=== PATIENT | female | born 1990 | race Caucasian/White ===

== ENCOUNTER 2018-11-26 11:05 | Inpatient (IN) | payer MEDICAID ==
[2018-11-26] MEDS ORDERED: CEFAZOLIN 2 GM/50 ML (PMX) 50 ML IVPB (12:30)
[2018-11-26] MEDS ORDERED: CARBOPROST 250 MCG INJ IM (12:30)
[2018-11-26 13:26] LABS: ADD MAN DIFF? NO
[2018-11-26 13:29] LABS: WHITE BLOOD COUNT 10.3 10^3/ul (4.8-10.8)
[2018-11-26 13:29] LABS: BASOPHILS % 0.4 % (0.0-2.0); EOSINOPHILS % 0.4 % (0.0-7.0); HEMATOCRIT 31.9 % (37.0-47.0); HEMOGLOBIN 10.6 g/dl (12.0-16.0); LYMPHOCYTES # 2.1 10^3/ul (0.8-2.9); LYMPHOCYTES % 19.9 % (15.0-51.0); MEAN CORPUSCULAR HGB CONC 33.2 g/dl (32.0-37.0); MEAN CORPUSCULAR VOLUME 90.4 fl (82.0-101.0); MEAN PLATELET VOLUME 9.3 fl (7.4-10.4); MONOCYTE # 0.7 10^3/ul (0.3-0.9); MONOCYTES % 6.9 % (0.0-11.0); NEUTROPHIL # 7.4 10^3/ul (1.6-7.5); PLATELET COUNT 195 10^3/UL (140-415); RED BLOOD COUNT 3.53 10^6/ul (4.20-5.40); RED CELL DISTRIBUTION WIDTH 14.3 % (11.5-14.5)
[2018-11-26 13:50] LABS: INR 1.02; PROTIME 13.5 Sec (11.9-14.9); PT RATIO 1.1
[2018-11-26 13:51] LABS: PARTIAL THROMBOPLASTIN TIME 28.1 Sec (23.0-35.0)
[2018-11-26] MEDS: BUTORPHANOL 2 MG INJ IV ×2 (14:20→17:16)
[2018-11-26] MEDS: LACTATED RINGER'S 1,000 ML IV ×2 (16:47→20:12)
[2018-11-26] MEDS: TERBUTALINE 1 MG/ML INJ SC (17:37)
[2018-11-26 18:13] LABS: RAPID PLASMA REAGIN NONREACTIVE (NR)
[2018-11-26] MEDS ORDERED: OXYTOCIN 10 UNIT INJ ×2 (18:46→19:18)
[2018-11-26] MEDS ORDERED: morphine SULFATE/PF (10 MG/10 ML) INJ (18:46)
[2018-11-26] MEDS ORDERED: ONDANSETRON 4 MG INJ (18:46)
[2018-11-26] MEDS ORDERED: OXYTOCIN 30 UNITS/LR 500 ML BAG IV (18:46)
[2018-11-26] MEDS ORDERED: PHENYLephrine 10 MG INJ (19:03)
[2018-11-26] MEDS ORDERED: NALOXONE (0.4 MG/ML) INJ IV (20:00)
[2018-11-26] MEDS ORDERED: morphine 2 MG INJ IV (20:00)
[2018-11-26] MEDS ORDERED: DIPHENHYDRAMINE 50 MG INJ IV (20:00)
[2018-11-26] MEDS ORDERED: ONDANSETRON 4 MG INJ IV (20:00)
[2018-11-26] MEDS: OXYTOCIN 30 UNITS/LR 500 ML IV ×2 (20:57→23:04)
[2018-11-26] MEDS: KETOROLAC 30 MG INJ IV (22:00)
[2018-11-26] MEDS: METHYLERGONOVINE 0.2 MG INJ IM (22:42)
[2018-11-26] MEDS: MISOPROSTOL 200 MCG TAB PR (23:05)
[2018-11-27] MEDS: LACTATED RINGER'S 1,000 ML IV ×4 (00:48→19:50)
[2018-11-27] MEDS: OXYTOCIN 30 UNITS/LR 500 ML IV (00:48)
[2018-11-27] MEDS ORDERED: CARBOPROST 250 MCG INJ IM (01:00)
[2018-11-27] MEDS ORDERED: METHYLERGONOVINE 0.2 MG INJ IM (01:00)
[2018-11-27] MEDS ORDERED: OXYTOCIN 30 UNITS/LR 500 ML IV (01:00)
[2018-11-27] MEDS ORDERED: NA PHOSPHATE/BIPHOS 133 ML ENEMA PR (01:00)
[2018-11-27] MEDS ORDERED: NACL 0.9% 3 ML SYG IV (01:00)
[2018-11-27] MEDS ORDERED: MISOPROSTOL 200 MCG TAB PR (01:00)
[2018-11-27] MEDS: LANOLIN HPA 1 PKT TOP (02:49)
[2018-11-27] MEDS: KETOROLAC 30 MG INJ IV ×3 (05:26→17:07)
[2018-11-27 08:12] LABS: ADD MAN DIFF? NO
[2018-11-27 08:19] LABS: WHITE BLOOD COUNT 12.6 10^3/ul (4.8-10.8)
[2018-11-27 08:19] LABS: BASOPHILS % 0.3 % (0.0-2.0); EOSINOPHILS % 0.1 % (0.0-7.0); HEMATOCRIT 28.2 % (37.0-47.0); HEMOGLOBIN 9.4 g/dl (12.0-16.0); LYMPHOCYTES # 1.6 10^3/ul (0.8-2.9); LYMPHOCYTES % 12.3 % (15.0-51.0); MEAN CORPUSCULAR HEMOGLOBIN 30.1 pg (29.0-33.0); MEAN CORPUSCULAR HGB CONC 33.3 g/dl (32.0-37.0); MEAN CORPUSCULAR VOLUME 90.4 fl (82.0-101.0); MEAN PLATELET VOLUME 9.3 fl (7.4-10.4); MONOCYTE # 1.1 10^3/ul (0.3-0.9); MONOCYTES % 9.1 % (0.0-11.0); NEUTROPHIL # 9.8 10^3/ul (1.6-7.5); NEUTROPHILS % 77.8 % (39.0-77.0); PLATELET COUNT 161 10^3/UL (140-415); RED BLOOD COUNT 3.12 10^6/ul (4.20-5.40); RED CELL DISTRIBUTION WIDTH 14.4 % (11.5-14.5)
[2018-11-27] MEDS: IBUPROFEN 800 MG TAB PO (22:00)
[2018-11-28] MEDS: LACTATED RINGER'S 1,000 ML IV ×2 (04:12→12:12)
[2018-11-28] MEDS: IBUPROFEN 800 MG TAB PO ×3 (06:16→22:24)
[2018-11-28] MEDS: HYDROCODONE/APAP (5/325) TAB PO ×4 (07:28→23:35)
[2018-11-29] MEDS: IBUPROFEN 800 MG TAB PO (06:32)
[2018-11-29] MEDS: HYDROCODONE/APAP (5/325) TAB PO ×2 (08:38→12:15)
[2018-11-29] MEDS: DIPHTH/TET/ACEL PERTUSS (ADULT) 0.5 ML VIAL IM* (09:00)
[2018-11-29] MEDS: MEASLES,MUMPS,RUBELLA VACCINE INJ SC* (09:00)
== END 2018-11-29 14:28 | disposition home or self-care (01) | DRG 788 ==
LOC: OBT 11:05 → PP1 11-27 00:24 → L-D 11:07 → OBT 12:10 → L-D 12:20
PROVIDERS: Obstetrics & Gynecology
PROC: 10D00Z1 Extraction of Products of Conception, Low, Open Approach (ICD-10-PCS; principal; 2018-11-26 18:45)
DX: O65.5 Obstructed labor due to abnormality of maternal pelvic organs (principal); O34.211 Maternal care for low transverse scar from previous cesarean delivery; Z3A.39 39 weeks gestation of pregnancy; Z37.0 Single live birth
CPT/HCPCS: 85025; 85610; 85730; 86592; 86850; 86900; 86901; 99464

== ENCOUNTER 2018-12-01 14:40 | Emergency (ER) | payer MEDICAID | END 2018-12-01 15:33 | disposition home or self-care (01) | LOC: FTE 14:40 | DX: O90.2 Hematoma of obstetric wound (principal) | CPT/HCPCS: 99283; Z7502 ==